=== PATIENT | male | born 1965 | race Caucasian/White ===

== ENCOUNTER 2017-04-24 23:01 | Inpatient (IN) | payer BC ==
[~2017-04-24] VITALS: Ht 167.6 cm; Wt 75.5 kg
[2017-04-25] VITALS (9 sets, daily range): BP systolic 111–133; BP diastolic 70–78; PULSE 72–99; RESP 16–18; TEMP 97.8; Ht 167.6 cm; Wt 75.5 kg
[2017-04-25] MEDS ORDERED: FAMOTIDINE 20 MG INJ IV ONE
[2017-04-25] MEDS ORDERED: DIPHENHYDRAMINE 50 MG INJ IV ONE
[2017-04-25] MEDS ORDERED: SOD CHLORIDE 0.9% 1,000 ML IV ONE
[2017-04-25] MEDS ORDERED: DEXAMETHASONE 10 MG/ML 1 ML INJ IV ONE
[2017-04-25] MEDS ORDERED: EPINEPHrine 1 MG INJ IM STA (00:23)
[2017-04-25] MEDS ORDERED: METHYLPREDNISOLONE 125 MG INJ IV ONE (00:30)
--- NOTE | 2017-04-25 00:45 | ERA ---
ER Documentation Chief Complaint Date/Time DATE: 04/25/17 TIME: 00:45 Chief Complaint Shortness of breath HPI The patient is a 51-year-old male, presenting to the ER because of acute shortness of breath after taking Motrin about 7 PM, complaining of sore throat, dysphagia, dysphonia, swollen eyelids. He denies swollen tongue, headache, neck pain, chest pain, abdominal pain, vomiting with dysuria, diarrhea. He does not smoke or drink Past medical history for hypertension Past surgical history: None ROS All systems reviewed and are negative except as per history of present illness. Medications Home Meds Reported Medications Loratadine/Pseudoephedrine (CLARITIN-D 24 HOUR TABLET) 1 Each Tab.er.24h, 1 TAB PO DAILY, #30 TAB 04/25/17 Ascorbic Acid* (Ascorbic Acid*) 500 Mg/5 Ml Syrup, 500 MG PO DAILY, #150 ML 04/25/17 Amlodipine Besylate* (Norvasc*) 5 Mg Tablet, 5 MG PO BID, TAB 04/25/17 Benazepril Hcl* (Benazepril Hcl*) 40 Mg Tablet, 40 MG PO DAILY, #30 TAB 04/25/17 Ibuprofen* (Ibuprofen*) 600 Mg Tablet, 600 MG PO Q6, TAB 04/25/17 Allergies Allergies: Coded Allergies: Penicillins (Unverified Allergy, Unknown, 04/25/17) PMhx/Soc Medical and Surgical Hx: pt denies Surgical Hx History of Surgery: No Anesthesia Reaction: No Hx Neurological Disorder: No Hx Respiratory Disorders: No Hx Cardiac Disorders: Yes (HTN) Hx Psychiatric Problems: No Hx Miscellaneous Medical Probl: No Hx Alcohol Use: No Hx Substance Use: No Hx Tobacco Use: No Smoking Status: Never smoker Physical Exam Vitals Vital Signs Date Time Temp Pulse Resp B/P Pulse Ox O2 Delivery O2 Flow Rate FiO2 04/25/17 02:48 80 18 120/89 100 Room Air 04/25/17 00:54 97.8 84 20 127/78 100 Room Air 04/24/17 23:06 98.2 62 20 157/98 100 Physical Exam Const: No acute distress. Head: Atraumatic. Eyes: Normal Conjunctiva. ENT: Normal External Ears, Nose and Mouth. Upper eyelid edematous, no nystagmus. The uvula is markedly edematous and erythematous Neck: Full range of motion. No meningismus. Resp: Clear to auscultation bilaterally. Cardio: Regular rate and rhythm. Abd: Soft, non distended, normal bowel sounds, non tender. Skin: No petechiae or rashes. Back: No midline or flank tenderness. Ext: No cyanosis, or edema. Neur: Awake and alert. No focal deficit Psych: Normal Mood and Affect. Result Diagram: 04/24/17 2347 04/24/17 2347 Results 24 hrs Laboratory Tests Test 04/24/17 23:47 White Blood Count 8.910^3/ul Red Blood Count 5.1910^6/ul Hemoglobin 15.0g/dl Hematocrit 45.1% Mean Corpuscular Volume 86.9fl Mean Corpuscular Hemoglobin 28.9pg Mean Corpuscular Hemoglobin Concent 33.3g/dl Red Cell Distribution Width 12.7% Platelet Count 26227^3/UL Mean Platelet Volume 9.9fl Neutrophils % 51.9% Lymphocytes % 34.3% Monocytes % 9.6% Eosinophils % 3.3% Basophils % 0.3% Nucleated Red Blood Cells % 0.0/100WBC Neutrophils # (Manual) 4.610^3/ul Lymphocytes # 3.110^3/ul Monocytes # 0.910^3/ul Eosinophils # 0.310^3/ul Basophils # 0.010^3/ul Nucleated Red Blood Cells # 0.010^3/ul Prothrombin Time 12.2Sec Prothrombin Time Ratio 1.0 INR International Normalized Ratio 0.91 Activated Partial Thromboplast Time 28.1Sec Sodium Level 143mmol/L Potassium Level 3.6mmol/L Chloride Level 99mmol/L Carbon Dioxide Level 28mmol/L Anion Gap 20 Blood Urea Nitrogen 20mg/dl Creatinine 1.09mg/dl Glucose Level 98mg/dl Calcium Level 9.1mg/dl Current Medications Medications (Trade) Dose Ordered Sig/Gaurang Route PRN Reason Start Time Stop Time Status Last Admin Dose Admin Dexamethasone (Decadron) 10 mg ONCE ONCE IV 04/25/17 00:00 04/25/17 00:01 DC 04/24/17 23:42 Diphenhydramine HCl (Benadryl) 50 mg ONCE ONCE IV 04/25/17 00:00 04/25/17 00:01 DC 04/24/17 23:42 Famotidine 20 mg 20 mg ONCE ONCE IV 04/25/17 00:00 04/25/17 00:01 DC 04/24/17 23:42 Sodium Chloride (NS) 1,000 ml @ 1,000 mls/hr Q1H ONCE IV 04/25/17 00:00 04/25/17 00:59 DC 04/24/17 23:42 Epinephrine (EPINEPHrine) 0.3 mg ONCE STAT IM 04/25/17 00:23 04/25/17 00:26 DC 04/25/17 00:29 Methylprednisolone Sodium Succinate 125 mg 125 mg ONCE ONCE IV 04/25/17 00:30 04/25/17 00:31 DC 04/25/17 00:35 Levofloxacin/ Dextrose (Levaquin 750 Mg/ D5W 150 ml (Pmx)) 150 ml @ 100 mls/hr ONCE ONCE IVPB 04/25/17 02:00 04/25/17 03:29 DC 04/25/17 01:56 Procedures/[place] [id number] Radiology Main Line: [phone] DIAGNOSTIC IMAGING REPORT Patient: GARETH BEARDEN : 1965 Age: 51 Sex: M MR #: [id number] DOS: 04/24/17 2338 Ordering MD: THAI RENEE PA-C Location: E/R Room/Bed: PROCEDURE: Portable chest x-ray. CLINICAL INDICATION: 51 years of age, male. Abdominal pain. TECHNIQUE: Portable AP view of the chest. COMPARISON: None available. FINDINGS: Cardiomediastinal contours are normal. Lungs are clear. Negative for pleural effusion or pneumothorax. No acute bony abnormality. IMPRESSION: Negative for evidence of acute chest process. RPTAT: HCTS Physician Kian Date Time Electronically viewed and signed by Yazmin Reynoso Physician on 04/25/2017 00: 46 CS/ CC: THAI RENEE PA-C MEDICAL MAKING DECISION: The patient is a 51-year-old male, presenting with acute anaphylaxis, acute uvulitis, most likely due to Motrin; however infectious uvulitis cannot be rule out. He was treated with 1 L normal saline, Decadron 10 mg IV, Solu-Medrol 125 mg IV, Pepcid 20 mg IV, Benadryl 50 mg IV with minimal response.. He was then treated with epinephrine 0.3 mg IM to anterior thigh with good response. He was treated empirically with Levaquin IV to rule out infectious uvulitis The differential diagnoses considered include but are not limited to Bill angina, epiglottitis, cellulitis Critical Care: Time: 35 minutes excluding all billable procedures. Treatments/Evaluations: Close monitoring and treatment of unstable vital signs, cardiorespiratory, and neurologic status, while maintaining tight balance of fluid, respiratory, and cardiac interventions. Departure Diagnosis: Primary Impression: Acute anaphylaxis Additional Impression: Uvulitis Condition: Serious Comments I discussed the findings with the patient. I discussed the patient with the on- call hospitalist Dr. Molina who was made aware of the lab, the treatment, the patient condition. The patient is admitted to [facility] MD Apr 25, 2017 00:44
[2017-04-25 01:28] LABS: BASOPHILS % 0.3 % (0.0-2.0); EOSINOPHILS # 0.3 10^3/ul (0.0-0.5); EOSINOPHILS % 3.3 % (0.0-7.0); HEMATOCRIT 45.1 % (42.0-52.0); LYMPHOCYTES # 3.1 10^3/ul (0.8-2.9); LYMPHOCYTES % 34.3 % (15.0-51.0); MEAN CORPUSCULAR HEMOGLOBIN 28.9 pg (29.0-33.0); MEAN CORPUSCULAR HGB CONC 33.3 g/dl (32.0-37.0); MEAN CORPUSCULAR VOLUME 86.9 fl (82.0-101.0); MEAN PLATELET VOLUME 9.9 fl (7.4-10.4); MONOCYTE # 0.9 10^3/ul (0.3-0.9); MONOCYTES % 9.6 % (0.0-11.0); NEUTROPHILS % 51.9 % (39.0-77.0); PLATELET COUNT 309 10^3/UL (140-415); RED BLOOD COUNT 5.19 10^6/ul (4.70-6.10); RED CELL DISTRIBUTION WIDTH 12.7 % (11.5-14.5); WHITE BLOOD COUNT 8.9 10^3/ul (4.8-10.8)
[2017-04-25 01:44] LABS: INR 0.91; PROTIME 12.2 Sec (12.2-14.2)
[2017-04-25 01:45] LABS: PARTIAL THROMBOPLASTIN TIME 28.1 Sec (25.0-35.0)
[2017-04-25] MEDS ORDERED: LEVOFLOXACIN 750MG/D5W (PMX) 150 ML IVPB ONE (02:00)
[2017-04-25 02:33] LABS: CALCIUM 9.1 mg/dl (8.4-10.2); CREATININE 1.09 mg/dl (0.61-1.24); POTASSIUM 3.6 mmol/L (3.5-5.1)
[2017-04-25] MEDS ORDERED: IBUP-1542 PO (03:06)
[2017-04-25] MEDS ORDERED: AMLO5TAB4 PO (03:06)
[2017-04-25] MEDS ORDERED: LORA-777 PO (03:06)
[2017-04-25] MEDS ORDERED: BENA40TA41 PO (03:06)
[2017-04-25] MEDS ORDERED: ASCO500S2 PO (03:06)
[2017-04-25] MEDS ORDERED: DIPHENHYDRAMINE 50 MG INJ IV PRN (04:30)
--- NOTE | 2017-04-25 05:12 | HP ---
DATE OF ADMISSION: 04/25/2017 CHIEF COMPLAINT: Sore throat and a swollen neck after taking medication. HISTORY OF PRESENT ILLNESS: A 51-year-old male who states that he was having dizziness at home, when all of a sudden, he started having a little itchiness and swelling of his neck. He suddenly of his face as well, and he noted that he had taken some ibuprofen earlier. As far as he knows, he does not have a history of an allergy to ibuprofen, but he does have a history of allergy to penicillin. On previous exam in the ER, per report, patient had an extensively swollen uvula and . Erythema and inflammation in his posterior pharynx. He was aggressively treated with steroids, as well as epinephrine pen. The patient has improved significantly. At the time of my review, he is more comfortable. He is lethargic, but he says he does not have the itchiness any more and he is not short of breath. At the time, he was not severely short of breath on arrival, he just had a lot of swelling. PAST MEDICAL HISTORY: Essentially is positive for high blood pressure. SURGICAL HISTORY: None. ALLERGIES: ALLERGIC TO: PENICILLIN. NOW POSSIBLY IBUPROFEN. SOCIAL HISTORY: Denies tobacco, alcohol or illicit drug use. FAMILY HISTORY: Noncontributory. REVIEW OF SYSTEMS: A 12-point review of systems with no pertinent findings except as noted in HPI. PHYSICAL EXAMINATION: VITAL SIGNS: Temperature 97.8, pulse is 80, respirations 18, blood pressure 120/89, saturation 100 percent on room air. GENERAL APPEARANCE: Sleeping, but easily aroused. HEENT: Head normocephalic. Pupils equal, round, reactive. Mucous membranes moist. Posterior pharynx at this time is quite benign actually. Uvula is mildly erythematous, but is not swollen and as inflamed as described earlier. His tongue is not swollen and it is nonobstructing. LUNGS: Clear to auscultation without wheezes or crackles. CARDIAC: S1, S2. No murmurs. ABDOMEN: Soft, nontender, nondistended. Normoactive bowel sounds. EXTREMITIES: No lower extremity edema. VITAL SIGNS: Devoid of rash or jaundice. PSYCHIATRIC: Patient is calm, cooperative with exam. LABORATORY VALUES: CBC, BMP, coag profile unremarkable. Chest x- ray was unremarkable. IMPRESSION: 1. Allergic reaction that is secondary to ibuprofen in this penicillin-allergic the patient, who has significantly improved. 2. Chronic hypertension with good control PLAN: The patient is to be admitted for observation overnight. Possibly discharge in the morning, if he continues to do well. I will continue him on oral steroids. We will also do a bedside swallow in the morning and see how he tolerates a diet. If he does well, he will probably discharge home with EpiPen and to avoid NSAIDs. Further interventions due to clinical course. Dictated By: Yemi Molina MD /claudine/fede /Document#: [id number]
[2017-04-25] MEDS ORDERED: predniSONE 20 MG TAB PO SCH (09:00)
[2017-04-25] MEDS ORDERED: FAMOTIDINE 20 MG INJ IV SCH (11:00)
[2017-04-25] MEDS ORDERED: AMLODIPINE 5 MG TAB PO SCH (12:00)
--- NOTE | 2017-04-25 16:12 | PDOCDIS ---
Discharge Instructions DIAGNOSIS Discharge Diagnosis Anaphylaxis. CONDITION Patient Condition: Stable HOME CARE INSTRUCTIONS: Diet Instructions: Reduced Sodium OTHER ORDERS: Other Orders: 1. Resume home medications. Avoid using benazepril. Use amlodipine. Complete the tapering dose of steroids. 2. Regular, preferably low sodium diet. 3. Resume activities as tolerated. 4. Follow-up with your PCP in 1 week to check if you need additional BP medications. ESAU MURPHY NP Apr 25, 2017 16:11
[2017-04-25] MEDS ORDERED: FAMO20TA18 PO (16:15)
[2017-04-25] MEDS ORDERED: PRED50TA PO (16:15)
[2017-04-25] MEDS ORDERED: EPIN0.3P4 IM (16:15)
--- NOTE | 2017-04-25 18:18 | DS ---
DATE OF ADMISSION: 04/24/2017 DATE OF DISCHARGE: 04/25/2017 FINAL DIAGNOSES: 1. Angioedema probably secondary to nonsteroidal antiinflammatory drugs. 2. Essential hypertension. HOSPITAL COURSE: This is a 51-year-old male with past medical history of essential hypertension, who was brought to the emergency room because of sore throat and swollen neck after taking ibuprofen along with benazepril. The patient verbalized that he was having some bilateral lower extremity pain. Consequently, he took some Motrin. He also verbalized that he took his benazepril within an hour of Motrin intake. The patient suddenly started feeling sore throat, dysphagia, and dysphonia along with swollen eyelids. Therefore, he came to the emergency room. The patient verbalized a prior similar history approximately 10 years ago, but not severe like this episode. In the emergency room, the patient was treated with IV Solu-Medrol, IV Decadron and IV histamine 1 and histamine 2 blockade. The patient's symptomatology improved. The patient was admitted to inpatient setting for close monitoring. The patient was maintained on steroids along with histamine 1 and histamine 2 blockade. The culprit of the patient's angioedema is unclear. It could be NSAID-induced. However, the patient was noted to be taking APARNA inhibitors. Hence this was put on hold. The patient uses the benazepril for blood pressure control. The patient has no history of any diabetes that necessitates the use of benazepril. Hence the patient will be continued on amlodipine only. The patient's blood pressure was well controlled over the hospital course and the patient probably needs only amlodipine for his blood pressure control. The patient was eventually started on a clear liquid diet and the patient's diet was advanced as tolerated to a regular consistency diet without any significant dysphagia or odynophagia. The patient is back to his baseline and the patient is stable to be discharged home to be followed up with his outpatient primary care physician. DISCHARGE DISPOSITION AND PLAN: The patient will be discharged home today. The patient was instructed to resume his home medications except for benazepril. He was instructed to complete the tapering dose of steroids. He was instructed to take a regular preferably low-sodium diet. He was instructed to resume activities as tolerated. He was instructed to follow up with his primary care physician in 1 week to check if he needs any additional antihypertensives since he was taken off of benazepril. The patient verbalized understanding of his discharge instructions. DISCHARGE CONDITION: Stable. DISCHARGE MEDICATIONS: 1. Famotidine 20 mg p.o. b.i.d. 2. Prednisone 40 mg p.o. daily x2 days, then prednisone 20 mg p.o. daily x2 days, then prednisone 10 mg p.o. daily x2 days, then prednisone 5 mg p.o. daily x2 days. 3. Amlodipine 5 mg p.o. b.i.d. 4. Claritin D 1 tablet p.o. daily. PERTINENT LABORATORY AND DIAGNOSTIC DATA: 1. Chest x-ray: Negative for evidence of any acute intrathoracic process. 2. CBC: WBC 8.9, hemoglobin 15.1, hematocrit 45.1, platelet count 309. 3. BMP: Sodium 143, potassium 3.6, chloride 99, carbon dioxide 28, anion gap 20, BUN 20, creatinine 1.49, glucose 98, calcium 9.1. DISCUSSION: The case and management of this patient was fully discussed with Dr. Love. Approximately 35 minutes was spent on coordinating the discharge on this patient. Dictated By: Jonnie Benitez NP /claudine/ronnie /Document#: [id number] SILVIANO
== END 2017-04-25 17:30 | disposition home or self-care (01) | DRG 916 ==
LOC: FTE 23:01 → MS4 04-25 03:12
PROVIDERS: ADMIT Family Medicine; ATTEND Family Medicine
DX: T78.3XXA Angioneurotic edema, initial encounter (principal); I10 Essential (primary) hypertension; K12.2 Cellulitis and abscess of mouth; T88.9XXA Complication of surgical and medical care, unspecified, initial encounter
CPT/HCPCS: 71010; 80048; 85025; 85610; 85730; 96372; 96374; 96375; J0171; J1100; J1200; J1956; J2930; J7030; J7512